=== PATIENT | female | born 2000 | race Caucasian/White ===

== ENCOUNTER 2024-07-20 11:19 | Emergency (ER) | payer OTHER ==
[~2024-07-20] VITALS: Ht 162.6 cm; Wt 70.1 kg
[2024-07-20 11:31] VITALS: BP 114/66; PULSE 78; RESP 18; TEMP 98; O2SAT 99
--- NOTE | 2024-07-20 12:35 | NUR ---
24 YO F; NKA; PMHX NONE; PATIENT PRESENTS TO ED C/O LLQ ABD PAIN X 2 DAYS, +HEADACHE,+NAUSEA,+DIARRHEA (2-3 X /DAY) DENIES VAGINAL BLEEDING, DENIES VOMITING; LMP 04/28/24, 11 WEEKS . SKIN IS PINK/WARM/DRY; AAOX4 WITH EVEN AND STEADY GAIT; LUNGS CLEAR BL; HR EVEN AND REGULAR; PT DENIES ANY FEVER, CP, SOB, OR COUGH AT THIS TIME; PATIENT STATES HAVING PAIN SHARP/INTERMITTENT/PRESSURE-LKE RADIATING OF 8/10 AT THIS TIME; VSS; PATIENT POSITIONED FOR COMFORT; HAS NOT TAKEN MEDICATION FOR PAIN; HOB ELEVATED; BEDRAILS UP X2; BED DOWN; CALL LIGHT WITHIN REACH; ER MD MADE AWARE OF PT STATUS.
--- NOTE | 2024-07-20 12:40 | NUR ---
MD SKINNER AT BEDSIDE EVALUATING PATIENT
[2024-07-20] MEDS: ACETAMINOPHEN 325 MG TAB PO ONE (13:06)
--- NOTE | 2024-07-20 13:10 | NUR ---
IMAGING AT BEDSIDE FOR US
[2024-07-20 13:16] LABS: APPEARANCE,URINE CLEAR (CLEAR); BILIRUBIN,URINE NEGATIVE (NEGATIVE); BLOOD, URINE NEGATIVE (NEGATIVE); COLOR,URINE YELLOW (YELLOW); LEUKOCYTE ESTERASE ,URINE NEGATIVE (NEGATIVE); NITRITE, URINE NEGATIVE (NEGATIVE); PROTEIN,URINE NEGATIVE (NEGATIVE); UGLUCOSE NEGATIVE (NEGATIVE); UROBILINOGEN,URINE 0.2 EU/dL (0.2 - 1)
[2024-07-20 14:43] VITALS: BP 108/62; PULSE 72; RESP 14; TEMP 36.66960; O2SAT 98
--- NOTE | 2024-07-20 14:43 | NUR ---
Patient discharged with v/s stable. Written and verbal after care instructions given and explained. Patient alert, oriented and verbalized understanding of instructions. Ambulatory with steady gait. All questions addressed prior to discharge. ID band removed. Patient advised to follow up with PMD. Patient educated on indication of medication including possible reaction and side effects. Opportunity to ask questions provided and answered.
== END 2024-07-20 14:43 | disposition home or self-care (01) ==
LOC: MED 11:19
DX: O26.891 Other specified pregnancy related conditions, first trimester (principal); R10.12 Left upper quadrant pain; R10.32 Left lower quadrant pain; O99.611 Diseases of the digestive system complicating pregnancy, first trimester; R19.7 Diarrhea, unspecified; M54.9 Dorsalgia, unspecified; R11.0 Nausea; Z3A.11 11 weeks gestation of pregnancy
CPT/HCPCS: 76815; 81003; 81025; 99284; Q0092